=== PATIENT | female | born 1950 | race Caucasian/White ===

== ENCOUNTER 2019-01-26 09:35 | Day surgery (SDC) | payer MEDICARE, BC ==
[2019-01-26] MEDS ORDERED: Sodium Chloride 0.9% 1,000 ML IV SCH (10:10)
[2019-01-26] MEDS ORDERED: fentaNYL 100 MCG/2 ML SDV ONE (10:59)
[2019-01-26] MEDS ORDERED: Midazolam 1 MG/ML 2 ML SDV ONE (10:59)
[2019-01-26] MEDS ORDERED: Propofol 200 MG/20 ML SDV ONE (10:59)
--- NOTE | 2019-01-27 08:03 | OR ---
DATE OF PROCEDURE: 01/26/2019 SURGEON: Manas Beth MD PROCEDURE: Colonoscopy. FINDINGS: 1. Transverse colon polyp, approximately 8 mm, completely removed using snare. 2. Rectal polyp x2, approximately 8 mm, completely removed using cold snare. COMPLICATIONS: None. SAS CLINICAL PROGRAMMER: None. ANESTHESIA: MAC. PREOPERATIVE DIAGNOSIS: History of colon polyps. POSTOPERATIVE DIAGNOSIS: History of colon polyps. RISKS: Risks, benefits, alternatives, and limitations including, but not limited to infection, bleeding, and perforation were explained to the patient, who wished to proceed. PROCEDURE IN DETAIL: The patient was placed in left lateral decubitus position. Digital rectal exam was performed without abnormality. Scope was introduced and advanced atraumatically to the ileocecal valve. A photo was taken. The scope was brought back through the ascending, transverse, descending colon, and retroflexed. The aforementioned polyps were identified and completely removed. The patient had diverticulosis which would be described as mild and limited to sigmoid colon only. No abnormalities and retroflexed. The patient tolerated the procedure well. Manas Beth MD /[id number]
== END 2019-01-26 13:18 | disposition home or self-care (01) ==
LOC: JP.SDS 09:35
PROVIDERS: ATTEND Surgery
DX: Z12.11 Encounter for screening for malignant neoplasm of colon (principal); D12.3 Benign neoplasm of transverse colon; D12.8 Benign neoplasm of rectum; K57.30 Diverticulosis of large intestine without perforation or abscess without bleeding; I10 Essential (primary) hypertension; E11.9 Type 2 diabetes mellitus without complications; J44.9 Chronic obstructive pulmonary disease, unspecified; Z86.010 Personal history of colon polyps
CPT/HCPCS: 45385; 88305; J2250; J2704; J3010; J7030

== ENCOUNTER 2019-03-12 10:49 | Emergency (ER) | payer MEDICARE, BC ==
[2019-03-12] MEDS ORDERED: methylPREDNISolone Sodium Succinate 125 MG/2 ML SDV IV ONE (11:05)
[2019-03-12] MEDS ORDERED: Famotidine 20 MG/2 ML SDV IVPUSH ONE (11:05)
[2019-03-12] MEDS ORDERED: diphenhydrAMINE 50 MG/ML SDV IVPUSH ONE (11:05)
[2019-03-12] MEDS ORDERED: Sodium Chloride 0.9% 1,000 ML IV SCH ×2 (11:15→13:15)
--- NOTE | 2019-03-12 11:23 | EDM.PDOC ---
ED HPI GENERAL MEDICAL PROBLEM - General Chief Complaint: Allergic Reaction Stated Complaint: ALLERGIC REACTION Time Seen by Provider: 03/12/19 11:05 Source of Information: Reports: Patient History Limitations: Reports: No Limitations - History of Present Illness INITIAL COMMENTS - FREE TEXT/NARRATIVE: 68 yo female presents to the ER with hives and mild SOB. hives started last evening. She was treated 4 days ago for UTI with Bactrim she has had this medication before she thinks. Hives started on back and have spread to head and bilateral arms. she denies new foods. she did receive a new batch of chicks this week but has had chickens before. Denies oral itching or difficulty swallowing. - Related Data Allergies Allergy/AdvReac Type Severity Reaction Status Date / Time morphine Allergy Cannot Verified 01/26/19 10:15 Remember Home Meds: Home Meds Fluticasone/Salmeterol [Advair 500-50] 1 puff INH BID 03/06/14 [History] Hydrocodone/Acetaminophen [Hydrocodone-Acetaminophen 5-325] 10 - 325 tab PO QID 03/06/14 [History] Ibuprofen [Motrin] 800 mg PO Q8H PRN 03/06/14 [History] Levalbuterol Tartrate [Xopenex HFA] 2 puff INH Q4H PRN 03/06/14 [History] fentaNYL [Fentanyl] 1 patch TOP ASDIRECTED 03/06/14 [History] Fexofenadine [Amarilys] 180 mg PO DAILY 01/24/19 [History] Fluticasone Propionate [Flonase] 2 spray NS DAILY 01/24/19 [History] Loratadine [Claritin] 10 mg PO DAILY 01/24/19 [History] Triamcinolone Acetonide [Kenalog 0.1% Crm] 1 applic TOP BID 01/24/19 [History] oxyCODONE [Oxycodone HCl] 10 mg PO BEDTIME 01/24/19 [History] Past Medical History 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: - Infectious Disease History Infectious Disease History: Reports: Chicken Pox, Measles, Mumps, Shingles - Past Surgical History GI Surgical History: Reports: Appendectomy, Cholecystectomy, Colonoscopy Musculoskeletal Surgical History: Reports: Knee Replacement Social & Family History - Tobacco Use Smoking Status *Q: Former Smoker Used Tobacco, but Quit: Yes Month/Year Tobacco Last Used: many years ago - Caffeine Use Caffeine Use: Reports: Coffee - Recreational Drug Use Recreational Drug Use: No ED ROS ALLERGIC REACTION - Review of Systems Review Of Systems: See Below Constitutional: Reports: Fatigue. Denies: Fever, Chills HEENT: Denies: Rhinitis, Sinus Problem Respiratory: Reports: Shortness of Breath. Denies: Wheezing Cardiovascular: Denies: Chest Pain GI/Abdominal: Denies: Abdominal Pain Skin: Reports: Rash, Erythema ED EXAM GENERAL NO PERIP PULSE - Physical Exam Exam: See Below Exam Limited By: No Limitations General Appearance: Alert, WD/WN, Mild Distress Throat/Mouth: Normal Inspection, Normal Lips, Normal Teeth, Normal Gums, Normal Oropharynx, Normal Voice, No Airway Compromise Head: Atraumatic, Normocephalic Neck: Normal Inspection, Supple, Non-Tender, Full Range of Motion. No: Lymphadenopathy (R), Lymphadenopathy (L) Respiratory/Chest: No Respiratory Distress, Lungs Clear, Normal Breath Sounds, No Accessory Muscle Use, Chest Non-Tender. No: Crackles, Rhonchi, Wheezing Cardiovascular: Normal Peripheral Pulses, Regular Rate, Rhythm, No Edema, No Gallop, No Murmur GI/Abdominal: Soft, Non-Tender, No Distention Psychiatric: Normal Affect, Anxious (mild) Skin Exam: Erythema, Rash (raised uticaria to truck, scalp and bolateral arms) Course - Vital Signs Last Recorded V/S: Last Vital Signs Temp 37.5 C 03/12/19 13:40 Pulse 92 03/12/19 13:40 Resp 16 03/12/19 13:40 BP 139/91 H 03/12/19 13:40 Pulse Ox 92 L 03/12/19 13:40 - Orders/Labs/Meds Orders: Active Orders 24 hr Category Date Time Status BABESIA MICROTI ANTIBODY PANEL Urgent Lab 03/12/19 12:30 Received HUMAN GRANULOCYTIC LUDWIG-HGE Urgent Lab 03/12/19 12:30 Received LYME, TOTAL AB TEST/REFLEX Stat Lab 03/12/19 12:31 Received Sodium Chloride 0.9% [Normal Saline] 1,000 ml Med 03/12/19 11:15 Active IV .BOLUS Sodium Chloride 0.9% [Normal Saline] 1,000 ml Med 03/12/19 13:15 Active IV ASDIRECTED Medication Orders Sodium Chloride (Normal Saline) 1,000 mls @ 500 mls/hr IV .BOLUS KEVIN Last Admin: 03/12/19 11:17 Dose: 500 mls/hr Sodium Chloride (Normal Saline) 1,000 mls @ 750 mls/hr IV ASDIRECTED KEVIN Last Admin: 03/12/19 13:39 Dose: 750 mls/hr Labs: Laboratory Tests 03/12/19 03/12/19 03/12/19 Range/Units 12:30 12:30 13:14 WBC 12.5 H (4.5-11.0) K/uL RBC 4.97 (3.30-5.50) M/uL Hgb 14.5 D (12.0-15.0) g/dL Hct 44.9 (36.0-48.0) % MCV 90 (80-98) fL MCH 29 (27-31) pg MCHC 32 (32-36) % Plt Count 141 L (150-400) K/uL Neut % (Auto) 85 H (36-66) % Lymph % (Auto) 8 L (24-44) % [place] % (Auto) 4 (2-6) % Eos % (Auto) 3 (2-4) % Baso % (Auto) 0 (0-1) % Sodium 135 L (140-148) mmol/L Potassium 4.9 (3.6-5.2) mmol/L Chloride 102 (100-108) mmol/L Carbon Dioxide 26 (21-32) mmol/L Anion Gap 11.9 (5.0-14.0) mmol/L BUN 12 D (7-18) mg/dL Creatinine 0.8 D (0.6-1.0) mg/dL Est Cr Clr Drug Dosing 54.13 mL/min Estimated GFR (MDRD) > 60 (>60) Glucose 134 H (74-106) mg/dL Calcium 8.6 (8.5-10.1) mg/dL Total Bilirubin 0.8 (0.2-1.0) mg/dL AST 44 H (15-37) U/L ALT 46 D (12-78) U/L Alkaline Phosphatase 91 (46-116) U/L Total Protein 6.6 (6.4-8.2) g/dL Albumin 3.2 L (3.4-5.0) g/dL Globulin 3.4 (2.3-3.5) g/dL Albumin/Globulin Ratio 0.9 L (1.2-2.2) Urine Color Yellow Urine Appearance Clear Urine pH 8.0 (4.5-8.0) Ur Specific [place] 1.005 L (1.008-1.030) Urine Protein Negative (NEGATIVE) mg/dL Urine Glucose (UA) Normal (NEGATIVE) mg/dL Urine Ketones Negative (NEGATIVE) mg/dL Urine Occult Blood Negative (NEGATIVE) Urine Nitrite Negative (NEGATIVE) Urine Bilirubin Negative (NEGATIVE) Urine Urobilinogen Normal (NORMAL) mg/dL Ur Leukocyte Esterase Negative (NEGATIVE) Urine RBC 0-5 (0-5) Urine WBC 0-5 (0-5) Ur Epithelial Cells Rare Amorphous Sediment Few Urine Bacteria Rare Urine Mucus Few Meds: Medications Generic Name Dose Route Start Last Admin Trade Name Freq PRN Reason Stop Dose Admin Sodium Chloride 1,000 mls @ 500 mls/hr 03/12/19 11:15 03/12/19 11:17 Normal Saline IV 500 mls/hr .BOLUS KEVIN Administration Sodium Chloride 1,000 mls @ 750 mls/hr 03/12/19 13:15 03/12/19 13:39 Normal Saline IV 750 mls/hr ASDIRECTED KEVIN Administration Discontinued Medications Generic Name Dose Route Start Last Admin Trade Name Freq PRN Reason Stop Dose Admin Acetaminophen 1,000 mg 03/12/19 12:11 03/12/19 13:32 Tylenol Extra Strength PO 03/12/19 12:12 Not Given ONETIME ONE Hydrocodone Bitart/Acetaminophen 1 tab 03/12/19 12:42 03/12/19 12:50 [place] 325-10 Mg PO 03/12/19 12:43 1 tab ONETIME ONE Administration Diphenhydramine HCl 25 mg 03/12/19 11:05 03/12/19 11:14 Benadryl IVPUSH 03/12/19 11:06 25 mg ONETIME ONE Administration Doxycycline Hyclate 100 mg 03/12/19 13:28 03/12/19 13:39 Vibramycin PO 03/12/19 13:29 100 mg ONETIME ONE Administration Famotidine 40 mg 03/12/19 11:05 03/12/19 11:16 Pepcid IVPUSH 03/12/19 11:06 40 mg ONETIME ONE Administration Methylprednisolone Sodium Succinate 125 mg 03/12/19 11:05 03/12/19 11:17 Solu-Medrol IV 03/12/19 11:06 125 mg ONETIME ONE Administration - Re-Assessments/Exams Free Text/Narrative Re-Assessment/Exam: 03/12/19 12:40 pt continues to complain of headache and fatigue skin and scalp continues to itch. Daughter reports a tick bite 2 weeks ago that she is sure was on pt for multiple days. 03/12/19 16:[address] Soto to discuss allergic reaction vs infection discussed time for resolution of hives and treatment plan. Pt will go home with children and return if worsens Departure - Departure Time of Disposition: 15:40 Disposition: Home, Self-Care 01 Condition: Fair Clinical Impression: Tick borne fever Allergic reaction caused by a drug Qualifiers: Encounter type: initial encounter Qualified Code(s): T78.40XA - Allergy, unspecified, initial encounter - Discharge Information *PRESCRIPTION DRUG MONITORING PROGRAM REVIEWED*: Not Applicable *COPY OF PRESCRIPTION DRUG MONITORING REPORT IN PATIENT BEBE: Not Applicable Instructions: Tick Bite Information, Adult Referrals: Ezekiel Lund MD [Primary Care Provider] - Forms: ED Department Discharge Additional Instructions: prednisone taper starting today fluid intake at 1.5 liters per day doxycycline 100 mg twice daily for 14 days follow-up with your primary care provider tomorrow for an appointment this week return to Emergency room if symptoms worsen - My Orders Last 24 Hours: My Active Orders 03/12/19 11:15 Sodium Chloride 0.9% [Normal Saline] 1,000 ml IV .BOLUS 03/12/19 12:30 BABESIA MICROTI ANTIBODY PANEL Urgent HUMAN GRANULOCYTIC LUDWIG-HGE Urgent 03/12/19 12:31 LYME, TOTAL AB TEST/REFLEX Stat 03/12/19 13:15 Sodium Chloride 0.9% [Normal Saline] 1,000 ml IV ASDIRECTED - Assessment/Plan Last 24 Hours: My Active Orders 03/12/19 11:15 Sodium Chloride 0.9% [Normal Saline] 1,000 ml IV .BOLUS 03/12/19 12:30 BABESIA MICROTI ANTIBODY PANEL Urgent HUMAN GRANULOCYTIC LUDWIG-HGE Urgent 03/12/19 12:31 LYME, TOTAL AB TEST/REFLEX Stat 03/12/19 13:15 Sodium Chloride 0.9% [Normal Saline] 1,000 ml IV ASDIRECTED
[2019-03-12] MEDS ORDERED: Acetaminophen 500 MG Tab PO ONE (12:11)
[2019-03-12] MEDS ORDERED: Acetaminophen/HYDROcodone 325-10 MG Tab PO ONE (12:42)
[2019-03-12] MEDS ORDERED: Doxycycline 100 MG Cap PO ONE (13:28)
[2019-03-15 11:12] LABS: LYME IGG/IGM AB <0.91 ISR (0.00-0.90)
[2019-03-15 16:08] LABS: BABESIA MICROTI IGG <1:10 (Neg:<1:10); BABESIA MICROTI IGM <1:10 (Neg:<1:10)
== END 2019-03-12 16:00 | disposition home or self-care (01) ==
LOC: JP.ED 10:49
DX: A93.8 Other specified arthropod-borne viral fevers (principal); L50.0 Allergic urticaria; R06.02 Shortness of breath; T36.8X5A Adverse effect of other systemic antibiotics, initial encounter; N39.0 Urinary tract infection, site not specified; Z88.5 Allergy status to narcotic agent; Z79.899 Other long term (current) drug therapy; Z87.891 Personal history of nicotine dependence
CPT/HCPCS: 36415; 80053; 81001; 85025; 86618; 86666; 86753; 96361; 96374; 96375; 99284; A9270; J1200; J2930; J3490; J7030; 99283

== ENCOUNTER 2021-01-03 14:26 | Emergency (ER) | payer MEDICARE, BC ==
[2021-01-03] MEDS ORDERED: Sodium Chloride 0.9% 10 ML Syringe FLUSH PRN (15:05)
[2021-01-03] MEDS ORDERED: LORazepam 2 MG/ML SDV IVPUSH ONE (15:05)
[2021-01-03] MEDS ORDERED: Lactated Ringers 1,000 ML IV ONE (15:05)
--- NOTE | 2021-01-03 15:07 | EDM.PDOC ---
<OfficerJose G - Last Filed: 01/03/21 18:31> ED HPI GENERAL MEDICAL PROBLEM - General Chief Complaint: General Stated Complaint: NEEDS FLUIDS Time Seen by Provider: 01/03/21 15:00 Source of Information: Reports: Patient, RN Notes Reviewed History Limitations: Reports: No Limitations - History of Present Illness INITIAL COMMENTS - FREE TEXT/NARRATIVE: 70-year-old female presents emergency department day complaint of muscle cramps, she states she has had problems with muscle cramps for some time but is really gotten worse over the last couple of days evaluated by her primary care yesterday does have a prescription for Flexeril she states it may help a little bit. No nausea vomiting no shortness of breath no chest pain - Related Data Allergies Allergy/AdvReac Type Severity Reaction Status Date / Time amoxicillin Allergy Hives Verified 01/03/21 14:53 morphine Allergy Cannot Verified 01/03/21 14:52 Remember Home Meds: Home Meds Fluticasone/Salmeterol [Advair 500-50] 1 puff INH BID 03/06/14 [History] Ibuprofen [Motrin] 800 mg PO Q8H PRN 03/06/14 [History] Levalbuterol Tartrate [Xopenex HFA] 2 puff INH Q4H PRN 03/06/14 [History] fentaNYL [Fentanyl] 25 patch TOP ASDIRECTED 03/06/14 [History] Fexofenadine [Amarilys] 180 mg PO DAILY 01/24/19 [History] Fluticasone Propionate [Flonase] 2 spray NS DAILY 01/24/19 [History] Loratadine [Claritin] 10 mg PO DAILY 01/24/19 [History] Triamcinolone Acetonide [Kenalog 0.1% Crm] 1 applic TOP BID 01/24/19 [History] oxyCODONE [Oxycodone HCl] 10 mg PO BEDTIME 01/24/19 [History] oxyCODONE 5 mg PO ASDIRECTED 01/03/21 [History] Past Medical History HEENT History: Reports: Impaired Vision Respiratory History: Reports: Asthma, COPD, Sleep Apnea Gastrointestinal 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: 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: Musculoskeletal History: Reports: Back Pain, Chronic - Infectious Disease History Infectious Disease History: Reports: Chicken Pox, Measles, Mumps, Shingles - Past Surgical History GI Surgical History: Reports: Appendectomy, Cholecystectomy, Colonoscopy Musculoskeletal Surgical History: Reports: Knee Replacement Social & Family History - Tobacco Use Tobacco Use Status *Q: Former Tobacco User Used Tobacco, but Quit: Yes Month/Year Tobacco Last Used: 1988 - Caffeine Use Caffeine Use: Reports: Coffee ED ROS GENERAL - Review of Systems Review Of Systems: See Below Constitutional: Reports: No Symptoms Respiratory: Reports: No Symptoms Cardiovascular: Reports: No Symptoms GI/Abdominal: Reports: No Symptoms Musculoskeletal: Reports: Muscle Pain, Other (Muscle cramping) ED EXAM, GENERAL - Physical Exam Exam Limited By: No Limitations General Appearance: Alert, Mild Distress Respiratory/Chest: No Respiratory Distress, Lungs Clear, Normal Breath Sounds, No Accessory Muscle Use, Chest Non-Tender Cardiovascular: Regular Rate, Rhythm, No Murmur GI/Abdominal: Soft, Non-Tender Back Exam: Normal Inspection, Decreased Range of Motion, Paraspinal Tenderness. No: Vertebral Tenderness Extremities: Normal Inspection, No Pedal Edema Neurological: Alert, No Motor/Sensory Deficits Departure - Departure Disposition: Home, Self-Care 01 Condition: Fair Clinical Impression: Muscle spasm - Discharge Information Instructions: Muscle Cramps and Spasms Referrals: Ezekiel Lund MD [Primary Care Provider] - Forms: ED Department Discharge Additional Instructions: Try the Toradol 10 mg 1 tablet up to 3 times a day as needed for pain control, please follow-up with your primary care next week for further evaluation and pain management Sepsis Event Note (ED) - Evaluation Sepsis Screening Result: No Definite Risk - Assessment/Plan Plan: Assessment Acuity = acute Site and laterality = muscle spasms complicated patient with known history of chronic back pain and chronic opioid use Etiology = suspicious for opioid withdrawal she does admit to not taking her fentanyl patch routinely and will miss days Manifestations = none Location of injury = Home Lab values = CBC, CMP, lactic acid, CK all within normal limits Plan Try the variety of medications without any relief initially tried Ativan no relief tried baclofen no relief tried hydromorphone no relief tried Toradol she states she was able to get some relief. Then elected to try combination of fentanyl and ketamine which did provide significant relief she was able to rest, plan is to discharge home with oral Toradol follow-up primary care next week, care was turned over to Dr. Melgoza at shift change This note was dictated using [employer] Document Preparation voice recognition software please call with any questions on syntax or grammar. <Kyler Melgoza - Last Filed: 01/03/21 21:27> ED EXAM, GENERAL - Physical Exam Exam: See Below Course - Vital Signs Last Recorded V/S: Last Vital Signs Temp 97.6 F 01/03/21 14:52 Pulse 71 01/03/21 18:47 Resp 16 01/03/21 18:47 BP 123/79 01/03/21 18:47 Pulse Ox 95 01/03/21 18:47 - Orders/Labs/Meds Orders: Active Orders 24 hr Category Date Time Status Peripheral IV Insertion Adult [OM.PC] Urgent Oth 01/03/21 15:06 Ordered Labs: Laboratory Tests 01/03/21 01/03/21 Range/Units 15:25 15:25 WBC 9.0 (4.5-11.0) K/uL RBC 5.22 (3.30-5.50) M/uL Hgb 15.0 (12.0-15.0) g/dL Hct 45.9 (36.0-48.0) % MCV 88 (80-98) fL MCH 29 (27-31) pg MCHC 33 (32-36) % Plt Count 220 (150-400) K/uL Neut % (Auto) 63 (36-66) % Lymph % (Auto) 26 (24-44) % [place] % (Auto) 9 H (2-6) % Eos % (Auto) 2 (2-4) % Baso % (Auto) 0 (0-1) % Sodium 142 (140-148) mmol/L Potassium 4.3 (3.6-5.2) mmol/L Chloride 105 (100-108) mmol/L Carbon Dioxide 27 (21-32) mmol/L Anion Gap 10.3 (5.0-14.0) mmol/L BUN 13 (7-18) mg/dL Creatinine 0.6 (0.6-1.0) mg/dL Est Cr Clr Drug Dosing 71.65 mL/min Estimated GFR (MDRD) > 60 (>60) Glucose 101 (74-106) mg/dL Calcium 9.1 (8.5-10.1) mg/dL Magnesium 2.0 (1.8-2.4) mg/dL Total Bilirubin 0.5 (0.2-1.0) mg/dL AST 24 (15-37) U/L ALT 38 (12-78) U/L Alkaline Phosphatase 114 (46-116) U/L Creatine Kinase 144 (26-192) U/L Total Protein 7.5 (6.4-8.2) g/dL Albumin 3.8 (3.4-5.0) g/dL Globulin 3.7 H (2.3-3.5) g/dL Albumin/Globulin Ratio 1.0 L (1.2-2.2) Meds: Medications Discontinued Medications Generic Name Dose Route Start Last Admin Trade Name Freq PRN Reason Stop Dose Admin Baclofen 10 mg 01/03/21 16:08 01/03/21 16:34 Baclofen 10 Mg Tab PO 01/03/21 16:09 10 mg ONETIME ONE Administration Fentanyl 100 mcg 01/03/21 17:44 01/03/21 18:01 Fentanyl 100 Mcg/2 Ml Sdv IVPUSH 01/03/21 17:45 100 mcg ONETIME ONE Administration Hydromorphone HCl 1 mg 01/03/21 16:30 01/03/21 16:34 Hydromorphone 1 Mg/Ml Syringe IVPUSH 01/03/21 16:31 1 mg ONETIME ONE Administration Lactated Ringer's 1,000 mls @ 999 mls/hr 01/03/21 15:05 01/03/21 15:20 Ringers, Lactated IV 01/03/21 16:05 999 mls/hr BOLUS ONE Administration Ketamine HCl 20 mg 01/03/21 17:44 01/03/21 18:01 Ketamine 500 Mg/5 Ml Mdv IV 01/03/21 17:45 20 mg ONETIME ONE Administration Ketorolac Tromethamine 30 mg 01/03/21 17:10 01/03/21 17:14 Ketorolac 30 Mg/Ml Sdv IVPUSH 01/03/21 17:11 30 mg ONETIME ONE Administration Lorazepam 0.5 mg 01/03/21 15:05 01/03/21 15:20 Lorazepam 2 Mg/Ml Sdv IVPUSH 01/03/21 15:06 0.5 mg ONETIME ONE Administration Sodium Chloride 10 ml 01/03/21 15:05 01/03/21 15:22 Sodium Chloride 0.9% 10 Ml Syringe FLUSH 10 ml ASDIRECTED PRN Administration Keep Vein Open - Re-Assessments/Exams Free Text/Narrative Re-Assessment/Exam: 01/03/21 19:18 Patient care turned over from Officer pending discharge. She responded well to numerous medications, especially a dose of ketamine at the end of her treatment. She will be discharged with 10 doses of Toradol to use up to 3 times daily and should recheck next week with her primary provider if not improving satisfactorily. Departure - Departure Time of Disposition: 20:22 Sepsis Event Note (ED) - Focused Exam Vital Signs: Vital Signs Temp Pulse Resp BP Pulse Ox 01/03/21 18:47 71 16 123/79 95 01/03/21 18:08 87 16 154/110 H 94 L 01/03/21 14:52 97.6 F 74 18 148/93 H 95 01/03/21 14:47 97.6 F 74 18 148/93 H 95
[2021-01-03] MEDS ORDERED: Baclofen 10 MG Tab PO ONE (16:08)
[2021-01-03] MEDS ORDERED: HYDROmorphone 1 MG/ML Syringe IVPUSH ONE (16:30)
[2021-01-03] MEDS ORDERED: Ketorolac 30 MG/ML SDV IVPUSH ONE (17:10)
[2021-01-03] MEDS ORDERED: fentaNYL 100 MCG/2 ML SDV IVPUSH ONE (17:44)
[2021-01-03] MEDS ORDERED: Ketamine 500 MG/5 ML MDV IV ONE (17:44)
== END 2021-01-03 20:26 | disposition home or self-care (01) ==
LOC: JP.ED 14:26
DX: R25.2 Cramp and spasm (principal); J44.9 Chronic obstructive pulmonary disease, unspecified; Z88.0 Allergy status to penicillin; Z88.5 Allergy status to narcotic agent; Z79.899 Other long term (current) drug therapy; Z87.891 Personal history of nicotine dependence
CPT/HCPCS: 36415; 80053; 82550; 83735; 85025; 96374; 96375; 99283; A9270; J1170; J1885; J2060; J3010; J7120

== ENCOUNTER 2021-10-04 15:00 | Emergency (ER) | payer MEDICARE, BC ==
[2021-10-04 16:58] LABS: CORONAVIRUS COVID-19 NAA POSITIVE (NEGATIVE)
== END 2021-10-04 18:11 | disposition home or self-care (01) ==
LOC: JP.ED 15:00
DX: U07.1 COVID-19 (principal); M54.6 Pain in thoracic spine; J44.9 Chronic obstructive pulmonary disease, unspecified; Z88.0 Allergy status to penicillin; Z88.5 Allergy status to narcotic agent; Z87.891 Personal history of nicotine dependence; Z20.822 Contact with and (suspected) exposure to COVID-19
CPT/HCPCS: 0241U; 36415; 74176; 80053; 81001; 83690; 85025; 99284; 99285

== ENCOUNTER 2021-10-12 15:29 | Emergency (ER) | payer MEDICARE, BC ==
[2021-10-12] MEDS ORDERED: Lactated Ringers 1,000 ML IV ONE (17:08)
[2021-10-12] MEDS ORDERED: Ondansetron 4 MG/2 ML SDV IVPUSH ONE (17:11)
[2021-10-12] MEDS ORDERED: Iopamidol 612 MG/ML 100 ML Bottle IV PRN (17:33)
[2021-10-12] MEDS ORDERED: Sodium Chloride 0.9% 10 ML Syringe FLUSH PRN (17:33)
[2021-10-12] MEDS ORDERED: Sodium Chloride 0.9% 50 ML IV SCH (17:45)
[2021-10-14 11:12] LABS: HBSAG SCREEN Negative (Negative); HEP A AB, IGM Negative (Negative); HEP B CORE AB, IGM Negative (Negative); HEP C VIRUS AB <0.1 s/co ratio (0.0-0.9)
== END 2021-10-12 20:39 | disposition home or self-care (01) ==
LOC: JP.ED 15:29
DX: K83.1 Obstruction of bile duct (principal); I88.9 Nonspecific lymphadenitis, unspecified; R11.0 Nausea; R91.1 Solitary pulmonary nodule; J44.9 Chronic obstructive pulmonary disease, unspecified; Z88.0 Allergy status to penicillin; Z88.5 Allergy status to narcotic agent
CPT/HCPCS: 36415; 71260; 74177; 80053; 80074; 81001; 82248; 83690; 85025; 96374; 99284; J2405; J7120; Q9967

== ENCOUNTER 2023-03-23 01:41 | Emergency (ER) | payer MEDICARE, BC ==
[2023-03-23] MEDS ORDERED: Sodium Chloride 0.9% 1,000 ML IV SCH (02:45)
[2023-03-23] MEDS ORDERED: Acetaminophen 325 MG Tab PO ONE (02:46)
[2023-03-23] MEDS ORDERED: Ondansetron 4 MG/2 ML SDV IVPUSH ONE (02:46)
[2023-03-23 02:56] LABS: BASOPHILS PERCENT AUTO 0.2 % (0.1-1.3); EOSINOPHILS ABSOLUTE AUTO 0.09 K/uL (0.00-0.40); EOSINOPHILS PERCENT AUTO 0.7 % (0.0-5.4); HEMATOCRIT 42.9 % (34.3-46.0); HEMOGLOBIN 14.7 g/dL (11.2-15.5); IMMATURE GRAN ABSOLUTE AUTO 0.05 K/uL (0.00-0.23); IMMATURE GRAN PERCENT AUTO 0.4 % (0.0-0.7); LYMPHOCYTES ABSOLUTE AUTO 0.86 K/uL (0.8-3.3); MEAN CORPUSCULAR HEMOGLOBIN 29.8 pg (31.6-35.5); MEAN CORPUSCULAR HGB CONC 34.3 g/dL (31.6-35.5); MONOCYTES ABSOLUTE AUTO 0.76 K/uL (0.20-0.90); MONOCYTES PERCENT AUTO 6.2 % (3.3-12.6); NEUTROPHILS ABSOLUTE AUTO 10.42 K/uL (1.0-7.6); NEUTROPHILS PERCENT AUTO 85.5 % (40.0-78.1); PLATELET COUNT,PLT 164 K/uL (130-375); RED BLOOD CELL COUNT 4.93 M/uL (3.77-5.24); WHITE BLOOD CELL COUNT,WBC 12.2 K/uL (3.2-11.0)
[2023-03-23 02:58] LABS: BASOPHILS ABSOLUTE AUTO 0.02 K/uL (0.00-0.10)
[2023-03-23 03:12] LABS: ALANINE AMINOTRANSFERASE,ALT 34 U/L (12-78); ALBUMIN 3.3 g/dL (3.4-5.0); ALKALINE PHOSPHATASE 101 U/L (46-116); ASPARTATE AMNIOTRANSFERASE,AST 28 U/L (15-37); BILIRUBIN TOTAL 0.9 mg/dL (0.2-1.0); BLOOD UREA NITROGEN,BUN 12 mg/dL (7-18); CALCIUM 8.5 mg/dL (8.5-10.1); CARBON DIOXIDE,CO2 26 mmol/L (21-32); CHLORIDE,CL 100 mmol/L (100-108); CREATINE KINASE,CK 219 U/L (26-192); CREATININE 0.8 mg/dL (0.6-1.0); EST CRCL DRUG DOSING (CG) 51.03 mL/min; ESTIMATED GFR 77 mL/min (>60); GLUCOSE RANDOM 145 mg/dL (74-106); MAGNESIUM 1.7 mg/dL (1.8-2.4); POTASSIUM,K 4.2 mmol/L (3.6-5.2); PROTEIN TOTAL,TP 7.2 g/dL (6.4-8.2); SODIUM,NA 132 mmol/L (140-148)
[2023-03-23 03:13] LABS: A/G RATIO 0.9 (1.2-2.2); ANION GAP 10.2 mmol/L (5.0-14.0)
[2023-03-23] MEDS: Sodium Chloride 0.9% 10 ML Syringe FLUSH PRN ×2 (03:22→04:56)
[2023-03-23] MEDS ORDERED: HYDROmorphone 1 MG/ML Syringe IVPUSH ONE (04:38)
== END 2023-03-23 06:10 | disposition home or self-care (01) ==
LOC: JP.ED 01:41
DX: T67.5XXA Heat exhaustion, unspecified, initial encounter (principal); J45.909 Unspecified asthma, uncomplicated; N30.00 Acute cystitis without hematuria; J44.9 Chronic obstructive pulmonary disease, unspecified; Z88.0 Allergy status to penicillin; Z88.5 Allergy status to narcotic agent; Z86.16 Personal history of COVID-19
CPT/HCPCS: 36415; 80053; 81001; 82550; 83735; 85025; 87086; 87088; 87186; 96361; 96374; 96375; 99283; A9270; J1170; J2405; J3490; J7030

== ENCOUNTER 2023-03-23 16:10 | Emergency (ER) | payer MEDICARE, BC ==
[2023-03-23 16:56] LABS: APPEARANCE,URINE SLIGHTLY CLOUDY (CLEAR); BILIRUBIN,URINE NEGATIVE (NEGATIVE); COLOR,URINE YELLOW (YELLOW); GLUCOSE,URINE NEGATIVE (NEGATIVE); KETONES,URINE NEGATIVE (NEGATIVE); LEUKOCYTE ESTERASE,URINE SMALL (NEGATIVE); NITRITE,URINE NEGATIVE (NEGATIVE); OCCULT BLOOD,URINE TRACE-INTACT (NEGATIVE); PROTEIN,URINE NEGATIVE (NEGATIVE); UROBILINOGEN,URINE 0.2 EU/dL (0.2-1.0)
[2023-03-23 17:00] LABS: RBC,URINE 0-5 (0-5)
[2023-03-23 17:01] LABS: AMORPHOUS SEDIMENT,URINE NOT SEEN; BACTERIA,URINE FEW; EPITHELIAL CELLS,URINE FEW; MUCUS,URINE NOT SEEN
== END 2023-03-23 17:45 | disposition home or self-care (01) ==
LOC: JP.ED 16:10
DX: N30.00 Acute cystitis without hematuria (principal); J44.9 Chronic obstructive pulmonary disease, unspecified; Z86.16 Personal history of COVID-19; Z88.0 Allergy status to penicillin; Z88.5 Allergy status to narcotic agent
CPT/HCPCS: 81001; 87086; 87088; 87186; 99283

== ENCOUNTER 2024-07-23 13:29 | Emergency (ER) | payer MEDICARE, BC | END 2024-07-23 14:38 | disposition home or self-care (01) | LOC: JP.ED 13:29 | DX: S30.860A Insect bite (nonvenomous) of lower back and pelvis, initial encounter (principal); J44.9 Chronic obstructive pulmonary disease, unspecified; Z90.49 Acquired absence of other specified parts of digestive tract; Z79.899 Other long term (current) drug therapy; Z88.0 Allergy status to penicillin; Z88.5 Allergy status to narcotic agent; W57.XXXA Bitten or stung by nonvenomous insect and other nonvenomous arthropods, initial encounter | CPT/HCPCS: 99282 ==